=== PATIENT | female | born 1985 | race Caucasian/White ===

== ENCOUNTER 2017-12-24 13:31 | Emergency (ER) | payer BC ==
--- NOTE | 2017-12-24 14:24 | ER Document Report ---
ED Medical Screen (RME) - General Chief Complaint: Skin Sore(s) Stated Complaint: SKIN ISSUE Time Seen by Provider: 12/24/17 14:13 Mode of Arrival: Ambulatory Information source: Patient Notes: Presents emergency department with complaints of bumps on her but for the past month or so. She reports they have been bothering her. She reports she has been picking at it. "Bumps" evaluated patient has 3 abscesses on her buttocks draining. Denies fever vomiting diarrhea. TRAVEL OUTSIDE OF THE [place] IN LAST 30 DAYS: No - Related Data Allergies/Adverse Reactions: No Known Allergies Allergy (Verified 12/24/17 13:32) Past Medical History - Past Medical History Cardiac Medical History: Denies: Hx Heart Attack, Hx Hypertension Pulmonary Medical History: Denies: Hx Asthma Neurological Medical History: Denies: Hx Cerebrovascular Accident, Hx Seizures GI Medical History: Denies: Hx Hepatitis, Hx Hiatal Hernia, Hx Ulcer Infectious Medical History: Denies: Hx Hepatitis Past Surgical History: Denies: Hx Hysterectomy, Hx Mastectomy, Hx Open Heart Surgery, Hx Pacemaker - Immunizations Hx Diphtheria, Pertussis, Tetanus Vaccination: Yes Physical Exam - Vital signs Vitals: Temp Pulse Resp BP Pulse Ox 98.3 F 101 H 18 122/77 99 12/24/17 14:02 12/24/17 14:02 12/24/17 14:02 12/24/17 14:02 12/24/17 14:02 Course - Vital Signs Vital signs: Temp Pulse Resp BP Pulse Ox 98.3 F 101 H 18 122/77 99 12/24/17 14:02 12/24/17 14:02 12/24/17 14:02 12/24/17 14:02 12/24/17 14:02
[2017-12-24] MEDS ORDERED: LIDOCAINE 1% INJ-PF (10 MG/ML) 30 ML SDV INJ ONE (14:31)
[2017-12-24] MEDS ORDERED: LIDOCAINE 1% INJ-PF (10 MG/ML) 30 ML SDV ONE (15:27)
--- NOTE | 2017-12-24 16:10 | ER Document Report ---
ED Skin Rash/Insect Bite/Abscs - General Chief Complaint: Skin Sore(s) Stated Complaint: SKIN ISSUE Time Seen by Provider: 12/24/17 14:13 Mode of Arrival: Ambulatory Information source: Patient Notes: Patient is a 32-year-old female who presents to the ER today for bumps on the top of both of her buttocks times approximately 1 month. Patient states it has been leaking fluid for approximately a week. Patient has no history of abscess or MRSA that she knows of. Patient denies any fevers or chills. TRAVEL OUTSIDE OF THE [place] IN LAST 30 DAYS: No - Related Data Allergies/Adverse Reactions: No Known Allergies Allergy (Verified 12/24/17 13:32) Past Medical History - General Information source: Patient - Social History Smoking Status: Never Smoker Chew tobacco use (# tins/day): No Frequency of alcohol use: None Drug Abuse: None Family History: Reviewed & Not Pertinent Patient has suicidal ideation: No Patient has homicidal ideation: No - Past Medical History Cardiac Medical History: Denies: Hx Heart Attack, Hx Hypertension Pulmonary Medical History: Denies: Hx Asthma Neurological Medical History: Denies: Hx Cerebrovascular Accident, Hx Seizures Renal/ Medical History: Denies: Hx Peritoneal Dialysis GI Medical History: Denies: Hx Hepatitis, Hx Hiatal Hernia, Hx Ulcer Infectious Medical History: Denies: Hx Hepatitis Past Surgical History: Denies: Hx Hysterectomy, Hx Mastectomy, Hx Open Heart Surgery, Hx Pacemaker - Immunizations Hx Diphtheria, Pertussis, Tetanus Vaccination: Yes Review of Systems - Review of Systems Constitutional: No symptoms reported EENT: No symptoms reported Cardiovascular: No symptoms reported Respiratory: No symptoms reported Gastrointestinal: No symptoms reported Genitourinary: No symptoms reported Female Genitourinary: No symptoms reported Musculoskeletal: No symptoms reported Skin: See HPI Hematologic/Lymphatic: No symptoms reported Neurological/Psychological: No symptoms reported Physical Exam - Vital signs Vitals: Temp Pulse Resp BP Pulse Ox 98.3 F 101 H 18 122/77 99 12/24/17 14:02 12/24/17 14:02 12/24/17 14:02 12/24/17 14:02 12/24/17 14:02 - Notes Notes: PHYSICAL EXAMINATION: GENERAL: Uncomfortable-appearing and in no acute distress. HEAD: Atraumatic, normocephalic. EYES: Pupils equal round and reactive to light, extraocular movements intact, sclera anicteric, conjunctiva are normal. NECK: Normal range of motion, supple without lymphadenopathy LUNGS: CTAB and equal. No wheezes rales or rhonchi. HEART: Regular rate and rhythm without murmurs EXTREMITIES: Normal range of motion, no pitting edema. No cyanosis. NEUROLOGICAL: Cranial nerves grossly intact. Normal sensory/motor exams. PSYCH: Normal mood, normal affect. SKIN: Warm, Dry, normal turgor, 2, approximately 2 cm long by 1 cm wide masses to the top of the right and left buttocks, induration at the gluteal cleft, extremely tender to palpation, leaking purulent fluid from both lesions/masses Course - Re-evaluation Re-evalutation: 12/24/17 16:08 I attempted incision and drainage myself, realizing that this was a pilonidal as soon as I pressed on the left buttocks and pus oozed from the right, flushed the left lesion with saline after cutting it open and saline squirted out of the right lesion. I did consult surgeon on-call who came down to evaluate patient because patient was too tender for me to continue. Dr. Isaacs, surgeon [facility] performed pilonidal I&D at bedside. placed on bactrim and norco 12/24/17 16:46 - Vital Signs Vital signs: Temp Pulse Resp BP Pulse Ox 98.5 F 110 H 18 126/81 H 97 12/24/17 16:39 12/24/17 16:39 12/24/17 16:39 12/24/17 16:39 12/24/17 16:39 Discharge - Discharge Clinical Impression: Pilonidal abscess Condition: Stable Disposition: HOME, SELF-CARE Instructions: Oral Narcotic Medication ([facility]), Post Incision and Drainage, Trimethoprim-Sulfa ([facility]) Additional Instructions: Return immediately for any new or worsening symptoms. Follow up with primary care provider, call tomorrow to make followup appointment. Follow-up with the surgeon in 1 week, shower twice daily, keep the area very dry. Referrals: ANJEL FLOWERS MD [ACTIVE STAFF] - Follow up as needed
[2017-12-24] MEDS ORDERED: OXYCODONE-ACETAMINOPHEN 5-325 MG TABLET PO ONE (16:37)
[2017-12-24 16:40] VITALS: BP 126/81
--- NOTE | 2017-12-24 20:24 | Operative Report ---
Nonrecallable Operative Report DATE OF SURGERY: 12/24/17 PREOPERATIVE DIAGNOSIS: Pilonidal abscess POSTOPERATIVE DIAGNOSIS: Pilonidal abscess OPERATION: Incision and drainage of a pilonidal abscess SURGEON: ANJEL FLOWERS ANESTHESIA: Local TISSUE REMOVED OR ALTERED: None COMPLICATIONS: None apparent ESTIMATED BLOOD LOSS: 10 cc PROCEDURE: Drains/implants: 4 x 4 gauze. Procedure in detail: After informed consent was obtained, the patient was laid in the prone position on the emergency room [facility]. The area of the sacrum was prepped and draped in a normal sterile fashion. The patient had 2 fistulous openings to the right and left of the gluteal cleft. There was hypertrophic granulation tissue present at both sites. 1% lidocaine was used to anesthetize the area. The hypertrophic granulation tissue was excised in elliptical fashion. This was done with a 15 blade scalpel, sharply and excisionally. Total area of debridement was approximately 2 cm. Skin and fatty soft tissue was debrided away, to reveal a large pilonidal abscess cavity. A moderate amount of purulent material was drained from the cavity. After copious amounts of irrigation, the wound was packed with a 4 x 4 gauze. A dressing was then placed over the area, and the procedure was concluded. All sponge, instrument, and needle counts were correct 2. Condition: Stable.
--- NOTE | 2017-12-25 12:21 | PDOC CONSULTATION ---
Consultation Consult Date: 12/24/17 Consult reason:: Pilonidal abscess History of Present Illness History of Present Illness: BRENDAN COLVIN is a 32 year old female seen at the request of the emergency room physicians surgical first assistant. This is a patient with a greater than one-year history of a pilonidal cyst. She reports swelling and tenderness in the sacral region over the last 1 month. It has been progressively worsening. She reports purulent drainage over the last 2-3 days. She denies fevers and chills. She denies abdominal pain, a history of Crohn's disease, previous perirectal abscess, or previous pilonidal cyst. She rates her pain as 8 out of 10 at the worst. Palpation and sitting make the pain worse. Nothing makes her pain better. Her pain does not radiate. Past Medical History Cardiac Medical History: Denies: Myocardial Infarction, Hypertension Pulmonary Medical History: Denies: Asthma Neurological Medical History: Denies: Seizures GI Medical History: Denies: Hepatitis, Hiatal Hernia Hematology: Denies: Anemia, Sickle Cell Disease Past Surgical History Past Surgical History: Denies: Amputation, Hysterectomy, Mastectomy, Pacemaker Social History Smoking Status: Never Smoker Frequency of Alcohol Use: Occasional Family History Family History: Reviewed & Not Pertinent Parental Family History Reviewed: Yes Children Family History Reviewed: Yes Sibling(s) Family History Reviewed.: Yes Medication/Allergy Home Medications: No Home Medications 12/24/17 Allergies/Adverse Reactions: No Known Allergies Allergy (Verified 12/24/17 13:32) Review of Systems Constitutional: ABSENT: anorexia, chills, fatigue, fever(s) Eyes: ABSENT: visual disturbances Ears: ABSENT: hearing changes Nose, Mouth, and Throat: ABSENT: sore throat Cardiovascular: ABSENT: chest pain, dyspnea on exertion Respiratory: ABSENT: cough, dyspnea Gastrointestinal: ABSENT: abdominal pain, bloating Genitourinary: ABSENT: dysuria Musculoskeletal: ABSENT: back pain Integumentary: PRESENT: other - Pain and purulent drainage in the area of the sacrum. She has 2 "scars" on either side of the gluteal cleft. These have been present for greater than 1 year and intermittently drain. Neurological: ABSENT: abnormal speech, confusion, convulsions, dizziness, memory loss Psychiatric: ABSENT: anxiety, hallucinations Endocrine: ABSENT: cold intolerance, heat intolerance Hematologic/Lymphatic: ABSENT: easy bleeding, easy bruising Physical Exam Vital Signs: Temp Pulse Resp BP Pulse Ox 98.5 F 110 H 18 126/81 H 97 12/24/17 16:39 12/24/17 16:39 12/24/17 16:39 12/24/17 16:39 12/24/17 16:39 Intake & Output 12/23/17 12/24/17 12/25/17 06:59 06:59 06:59 Weight 70.8 kg General appearance: PRESENT: no acute distress Head exam: PRESENT: atraumatic, normocephalic Eye exam: PRESENT: EOMI, PERRLA. ABSENT: scleral icterus Mouth exam: PRESENT: moist, neck supple Teeth exam: PRESENT: poor dentation Neck exam: ABSENT: lymphadenopathy, meningismus, tenderness, thyromegaly, tracheal deviation Respiratory exam: PRESENT: clear to auscultation alexa, unlabored. ABSENT: chest wall tenderness, rales, tachypnea, wheezes Cardiovascular exam: PRESENT: RRR Pulses: PRESENT: normal radial pulses Vascular exam: PRESENT: normal capillary refill. ABSENT: pallor GI/Abdominal exam: PRESENT: soft. ABSENT: distended, tenderness Extremities exam: ABSENT: clubbing Musculoskeletal exam: ABSENT: deformity Neurological exam: PRESENT: alert, awake, oriented to person, oriented to place , oriented to time, oriented to situation, CN II-XII grossly intact Psychiatric exam: PRESENT: anxious. ABSENT: agitated, depressed Focused psych exam: ABSENT: delusional Skin exam: PRESENT: erythema, other - Pilonidal abscess with obvious fistula tracts to the right and left of the gluteal cleft. There is hypertrophic granulation and inflammation present. There is purulent drainage present. Assessment & Plan - Diagnosis (1) Pilonidal abscess Is this a current diagnosis for this admission?: Yes - Plan Summary Plan Summary: This is a 32-year-old female with a one-year history (or greater) of a pilonidal cyst. The patient reports purulent drainage, increasing pain, and swelling over the last 1 month. Patient appears to have a pilonidal abscess with 2 separate fistulous openings. I have recommended incision and drainage of the pilonidal abscess today. The patient has agreed to this. She will likely require a definitive surgery once her infection has resolved. I will plan to perform this in 6-8 weeks from now. I will provide the patient with a pain medicine prescription and oral antibiotics to go home with. Disposition per the emergency department.
== END 2017-12-24 16:52 | disposition home or self-care (01) ==
LOC: ER 13:31
DX: L05.01 Pilonidal cyst with abscess (principal)
CPT/HCPCS: 99284; 87070; 87205; 87075; 87077; 87186; 10080; J3490

== ENCOUNTER 2018-02-16 08:41 | Day surgery (SDC) | payer BC ==
[~2018-02-16 08:41] MED LIST: CEFOXITIN SODIUM 2 GM in DEXTROSE 5%-WATER 100 ML IV PRN; LACTATED RINGERS 1000 ML IV PRN
[2018-02-16 09:34] LABS: HEMATOCRIT 34.9 % (36.0-47.0); HEMOGLOBIN 12.1 g/dL (12.0-15.5); MEAN CORPUSCULAR HGB CONC 34.7 g/dL (32.0-36.0); MEAN CORPUSCULAR VOLUME 92 fl (80-97); PLATELET COUNT 293 10^3/uL (150-450); RED BLOOD COUNT 3.78 10^6/uL (3.72-5.28); WHITE BLOOD COUNT 6.9 10^3/uL (4.0-10.5)
[2018-02-16] MEDS ORDERED: SUCCINYLCHOLINE CHLORIDE INJ 200 MG/10 ML VIAL ONE (09:36)
[2018-02-16] MEDS ORDERED: BUPIVACAINE HCL 0.5 % INJ/PF 30 ML SDV ONE (09:46)
[2018-02-16 09:49] LABS: ANION GAP 11 (5-19); BLOOD UREA NITROGEN 11 mg/dL (7-20); CALCIUM 9.1 mg/dL (8.4-10.2); CARBON DIOXIDE 24 mmol/L (22-30); CHLORIDE 104 mmol/L (98-107); GLUCOSE 91 mg/dL (75-110); POTASSIUM 3.8 mmol/L (3.6-5.0); SODIUM 138.7 mmol/L (137-145)
[2018-02-16] MEDS ORDERED: MIDAZOLAM 2 MG/2 ML INJ ONE (11:03)
[2018-02-16] MEDS ORDERED: FENTANYL CITRATE INJ/PF 100 MCG/2 ML AMPUL ONE (11:03)
[2018-02-16] MEDS ORDERED: ONDANSETRON HCL INJ/PF 4 MG/2 ML SDV ONE (11:03)
[2018-02-16] MEDS ORDERED: PROPOFOL INJ 200 MG/20 ML VIAL IV ONE (11:03)
[2018-02-16] MEDS ORDERED: ACETAMINOPHEN 1,000 MG/100 ML RTUPB IV ONE (11:03)
[2018-02-16] MEDS ORDERED: DEXAMETHASONE SOD PHOSPHATE INJ 4 MG/1 ML VIAL ONE (11:03)
[2018-02-16] MEDS ORDERED: DIPHENHYDRAMINE HCL 50 MG/ML VIAL IV PRN (11:43)
[2018-02-16] MEDS ORDERED: MORPHINE SULFATE 10 MG/ML INJ IV PRN (11:43)
[2018-02-16] MEDS ORDERED: MEPERIDINE HCL/PF INJ 25 MG/1 ML DISP.SYRIN IV PRN (11:43)
[2018-02-16] MEDS ORDERED: ONDANSETRON HCL INJ/PF 4 MG/2 ML SDV IV PRN (11:43)
[2018-02-16] MEDS ORDERED: FENTANYL CITRATE INJ/PF 100 MCG/2 ML AMPUL IV PRN ×3 (11:43)
[2018-02-16] MEDS ORDERED: OXYCODONE-ACETAMINOPHEN 5-325 MG TABLET PO PRN ×2 (11:43)
[2018-02-16] MEDS ORDERED: PROMETHAZINE HCL INJ 25 MG/1 ML VIAL IV PRN ×2 (11:43)
[2018-02-16] MEDS ORDERED: HYDROCODONE/ACETAMINOPHEN 10-325 MG TABLET PO PRN (12:36)
[2018-02-16 15:18] VITALS: BP 121/74
--- NOTE | 2018-02-21 07:43 | Discharge Summary ---
Discharge Summary (SDC) - Discharge Final Diagnosis: pilonidal cyst Date of Surgery: 02/16/18 Discharge Date: 02/16/18 Condition: Stable Forms: ASU Anesthesia D/C Instruction, Discharge POC-Surgical Service Referrals: ANJEL FLOWERS MD [ACTIVE STAFF] - (Follow up 03-01-18@09:30) Respiratory Treatments at Home: Deep Breathing/Coughing Discharge Activity: Balance Activity w/Rest, No Lifting Over 10 Pounds Home Care Assistance: Provided by Family Report the Following to Your Physician Immediately: Shortness of Breath, Nausea , Increase in Pain, Fever over 101 Degrees, Unusual Bleeding, Redness, Swelling , Warmth, Increased Soreness, IV Site Infection Signs
--- NOTE | 2018-02-21 07:50 | Operative Report ---
Nonrecallable Operative Report DATE OF SURGERY: 02/16/18 PREOPERATIVE DIAGNOSIS: Symptomatic pilonidal cyst. POSTOPERATIVE DIAGNOSIS: Same as above OPERATION: Excision of pilonidal cyst. SURGEON: ANJEL FLOWERS ANESTHESIA: GA TISSUE REMOVED OR ALTERED: Pilonidal cyst COMPLICATIONS: None apparent ESTIMATED BLOOD LOSS: Minimal PROCEDURE: Drains/implants: None. Procedure in detail: After informed consent was obtained, the patient was brought into the operating room and placed in the prone position. The area of the pilonidal cyst was prepped and draped in a normal sterile fashion. The cyst had 2 separate fistula tracts extending to the right and left of the midline. These fistula tracts were excised, along with the cyst, down to the sacral fascia. Next local skin flaps were raised. The subcutaneous tissue was closed using 3-0 Vicryl suture in simple interrupted fashion. The overlying skin was closed using 0 Vicryl suture in vertical mattress fashion. Once the skin was closed, a dressing was placed and the procedure was concluded. All sponge, instrument, and needle counts were correct x2. Condition: Stable.
== END 2018-02-16 14:30 | disposition home or self-care (01) ==
LOC: OROUT 08:41
PROVIDERS: ATTEND Surgery
DX: L05.91 Pilonidal cyst without abscess (principal); Z01.818 Encounter for other preprocedural examination
CPT/HCPCS: 36415; 85027; 81025; 80048; 11770; J2250; J3490; J1100; J0694; J3010; J0330; J2405; J2704; J0131; 300